=== PATIENT | female | born 1945 | race Caucasian/White ===

== ENCOUNTER → 2020-01-01 | Outpatient (CLI) | payer MEDICARE ==
[~2020-01-01] MED LIST: ALPR0.254 PO; ATEN50TA41 PO; LOSA50TA14 PO; PRAV20TA2 PO; TEMA15CA PO
== END | disposition home or self-care (01) ==
LOC: CVU 12:40
PROVIDERS: ATTEND Internal Medicine Cardiovascular Disease
DX: I35.8 Other nonrheumatic aortic valve disorders (principal); I65.23 Occlusion and stenosis of bilateral carotid arteries; I10 Essential (primary) hypertension; E78.2 Mixed hyperlipidemia; Z72.0 Tobacco use
CPT/HCPCS: 93306; 93356; 93880